=== PATIENT | female | born 1990 | race Hispanic/Latino ===

== ENCOUNTER 2025-09-07 15:01 | Day surgery (SDC) | payer OTHER, SELFPAY ==
[2025-09-07] MEDS ORDERED: hydrALAZINE 20 MG/ML VIAL SLOW IVP PRN (15:14)
[2025-09-07 15:16] VITALS: BMI 34.2
== END 2025-09-07 15:47 | disposition home or self-care (01) ==
LOC: CSHLD/OP 15:01
PROVIDERS: ATTEND Student in an Organized Health Care Education/Training Program
DX: O24.419 Gestational diabetes mellitus in pregnancy, unspecified control (principal); Z3A.37 37 weeks gestation of pregnancy; Z67.20 Type B blood, Rh positive; Z88.6 Allergy status to analgesic agent; Z88.8 Allergy status to other drugs, medicaments and biological substances
CPT/HCPCS: 99284